=== PATIENT | female | born 1945 ===

== ENCOUNTER 2025-11-07 07:42 | Inpatient (IN) | payer MEDICARE, SELFPAY ==
[2025-11-05] VITALS (11 sets, daily range): BP systolic 91–144; BP diastolic 72–89
--- NOTE | 2025-11-05 20:49 | ED.GENMED ---
History of Present Illness
General
Chief Complaint: Weakness
Time Seen by Provider: 11/05/25 20:49
Nursing documentation reviewed up to this point in time: agreed with
History of Present Illness
History of Present Illness:
80-year-old female brought to the ER by EMS for evaluation of generalized weakness worsening over the past 5 to 6 hours. Patient also has had a cough over the past few days along with poor appetite. is present bedside to provide additional
history and states that she has been ill for the last couple of days with intermittent episodes of significant weakness, not unilateral. Patient does have a prior history of stroke which has left her with some dizziness, she reports that the
dizziness is severe today. No new syncope or trauma. She denies chest pain. No reported fever. Patient was nauseated at time of EMS arrival, she did receive Zofran and route to the hospital.
Review of Systems
Review of Systems
Allergies reviewed?: Yes
Phy Exam
Physical Exam
Physical Exam:
Patient is awake, alert, appears in no acute distress, head is NCAT, PERRL, EOMI mucous membranes moist, conjunctiva pink, heart regular rate and rhythm without murmurs or ectopy, lungs are clear to auscultation without wheezes rales or rhonchi, no
JVD, left breast status post mastectomy with significant skin retraction abdomen is soft and nontender on palpation, extremities without edema, GCS is 15, no pronator drift, moving extremity symmetrically without focal deficit, mild delayed movement
of the right side of her face but she does not exhibit facial asymmetry, patient wearing compressive stocking on left upper extremity and left lower extremity
Course
Orders/Labs/Results
Orders:
Orders
11/05/25 20:53
Electrocardiogram (*1) Stat
Reason for Study: Other
Other Reason for Exam: neuro symptoms
CT Head W/o Iv Contrast Urgent
Comment:
Reason For Exam: generalized weakness, dizziness
Bedside Glucose- Treatment ONCE
EKG- Treatment ONCE
IV Insert/Care/Rem.- Treatment PRN
0.9% Sodium Chloride 1000 ml [Nss] 1,000 ml IV BOLUS
Pulse Ox/cont/shift [RESP] Stat
Quantity: 1
11/05/25 20:54
Urinalysis Reflex To Culture Urgent
CR Chest - 2 Views Urgent
Comment:
Reason For Exam: weakness
11/05/25 20:59
COVID-19 Antigen Urgent
Source: Nasal Swab
Complete Blood Count/With Diff Urgent
Troponin I Urgent
Influenza A+B Rapid Molecular Urgent
MANJU Source: Nasal Swab
Specimen Description:
11/05/25 21:00
Comprehensive Metabolic Panel Urgent
PTT Urgent
Prothrombin Time Urgent
11/05/25 22:24
Oseltamivir Phosphate [Tamiflu] 75 mg PO NOW STA
Abnormal Lab Results
11/05/25 11/05/25 11/05/25
20:59 21:00 21:02
RDW 16.6 H %
(11.5-14.5)
Abs Immat Gran (auto) 0.1 H 10^3/uL
(0-0.05)
Absolute Neuts (auto) 6.8 H 10^3/uL
(1.4-6.5)
Absolute Lymphs (auto) 0.6 L 10^3/uL
(1.2-3.4)
Immature Gran % 1.0 H %
(0-0.5)
Neutrophils % 85.1 H %
(42.2-75.2)
Lymphocytes % 7.4 L %
(20.5-51.1)
Sodium 130 L mmol/L
(135-145)
Carbon Dioxide 17 L mmol/L
(22-30)
BUN 20 H mg/dl
(7-17)
Creatinine 1.1 H mg/dL
(0.6-1.0)
Glucose 121 H mg/dl
(70-99)
AST 38 H U/L
(14-36)
POC Glucose 105 H mg/dl
(70-99)
11/05/25 20:59
11/05/25 21:00
Vital Signs
Initial and Last Documented VS:
Initial Vital Signs
Temp Pulse Resp BP Pulse Ox
97.9 F 78 18 91/72 93
11/05/25 21:08 11/05/25 21:08 11/05/25 21:08 11/05/25 21:08 11/05/25 21:08
Last Documented Vital Signs
Temp Pulse Resp BP Pulse Ox
97.9 F 76 23 100/78 92
11/05/25 21:08 11/05/25 21:19 11/05/25 21:19 11/05/25 21:15 11/05/25 21:19
MDM/Problems Addressed
Differential Diagnosis Includes:
Differential diagnosis to consider but not limited to COVID, influenza, electrolyte dyscrasia, acute CVA, acute kidney injury along with other etiologies that are considered
Chronic conditions affecting care:
Advanced age, prior stroke, dizziness, previous breast
*Radiology
Radiology exam reviewed: radiology read reviewed (CT head without evidence of acute process)
*Pulse Oximetry
SaO2: 93
Oxygen Mode of Delivery: Room air
Patient hypoxic: no
*EKG
Interpreted by ED Provider?: Yes (I independently viewed and interpreted twelve-lead EKG showing normal sinus rhythm, rate 78, leftward axis, T wave inversions in the lateral leads, no ST elevation, this is an abnormal tracing without prior for
comparison)
*Biology Tutor Interpretation
Rate: normal (I independently viewed and interpreted rhythm strip showing normal sinus rhythm, no ectopy)
*Critical Care Note
Total Time (30-74mins, 75-104mins- exclusive of procedures): Not Applicable
Update Note
Update Note:
Patient is influenza positive. Given weakness with gait disturbance at home, will will plan for admission. Patient and agree with plan at current. Tamiflu ordered. Will discussed with the hospitalist
ED Attending Note
-
Portions of this chart may have been created with voice recognition software.� Occasional wrong word or��sound alike� substitutions may have occurred due to the inherent limitations of voice recognition software.
Discharge Plan
Departure
Patient Disposition: Admit
Date of Disposition: 11/05/25
Time of Disposition: 22:31
Presentation/result/management discussed w/ accepting MD/DO: Hospitalist
Discharge Problem:
Influenza, Weakness
Referrals:
Angelika Benitez CRNP [Family Provider, Family Practice]
Interventions
Interventions:
*General Assessment Last Done: 11/05/25 20:57
*Neglect/Abuse Screening Last Done: 11/05/25 21:08
*ED COVID-19 Vaccine History Last Done: 11/05/25 20:46
*ED Influenza Vaccine History Last Done: 11/05/25 20:46
[facility] Risk Assessment Tool Last Done: 11/05/25 21:25
*Risk Screen - Suicide (C-SSRS) Last Done: 11/05/25 21:08
ED- Cardiac Assessment Last Done: 11/05/25 22:04
ED- Neurological Assessment Last Done: 11/05/25 22:04
ED- Pulmonary Assessment Last Done: 11/05/25 22:04
Discharge Date and Time
Print Language: AMHARIC
[2025-11-05 21:03] LABS: Glucose - Point of Care 105 mg/dl (70-99)
[2025-11-05] MEDS: NSS 1000 IV (21:04)
[2025-11-05 21:12] LABS: Hematocrit 42.9 % (37.0-47.0); Hemoglobin 14.6 g/dL (12.0-16.0); Mean Corp Hgb Conc. 34.0 g/dL (33.0-37.0); Mean Corpuscular Volume 87.0 fL (81.0-99.0); Nucleated Red Blood Cells % 0 %; Platelet Count 223 10^3/uL (130-400); Red Cell Dist. Width 16.6 % (11.5-14.5)
[2025-11-05 21:22] LABS: APTT 25.8 Sec (23.4-35.0); INR 1.07; PT 13.7 Sec (11.4-14.6)
[2025-11-05 21:25] LABS: COVID-19 Antigen Negative (Negative)
[2025-11-05 21:31] LABS: ALT (SGPT) 24 U/L (0-35); AST (SGOT) 38 U/L (14-36); Albumin 3.6 g/dl (3.5-5.0); Alkaline Phosphatase 63 U/L (38-126); Blood Urea Nitrogen 20 mg/dl (7-17); Calcium 8.5 mg/dl (8.4-10.2); Carbon Dioxide 17 mmol/L (22-30); Chloride 104 mmol/L (98-107); Glucose 121 mg/dl (70-99); Potassium 4.3 mmol/L (3.5-5.1); Sodium 130 mmol/L (135-145); Total Protein 6.4 g/dl (6.3-8.2); eGFR 50.17
[2025-11-05 21:40] LABS: Troponin I 0.025 ng/ml
[2025-11-05] MEDS: TAMIFLU 75 MG PO (22:35)
--- NOTE | 2025-11-05 23:53 | HPS.HSE ---
Family Physician
-
Family Physician: Angelika Benitez
Chief Complaint
-
Cough, Fatigue
History of Present Illness
Patient is an 80y F with PMH significant for renal transplant, hypertension and prior CVA who presents to ED complaining of cough and fatigue. History obtained from patient and at the bedside. Patient and her developed cough on
Monday. Patient has had poor PO intake for the past 2 days. Very fatigued, sleeping a great deal. Today she was unable to get OOB and called 911.
Patient presented to the ED where she tested positive for influenza A.
Medical History
Past Medical History
Past Medical History: Reports Other
Additional Past Medical History:
CKD s/p Renal Transplant
Hypertension
ASCVD
Prior CVA
Chronic L TKA PJI
History of CDiff Infection
Breast Cancer
Past Surgical History: Reports Other
Additional Past Surgical History:
Left Lumpectomy
Renal Transplant
Left TKA
Left TKA Wash-Out
Bilateral JANEL
Social History
Tobacco: Former Smoker (Quit smoking 20 years ago.)
Alcohol: None
Drug: None
Family History
Family History: Not pertinent
Allergies / Home Medications
Allergies reflects when Allergies were last updated in [employer].
Home Medications with original date entered in [employer]
Allergy/Medication List:
Allergies
Allergy/AdvReac Type Severity Reaction Status Date / Time
No Known Allergies Allergy Verified 11/05/25 20:53
Home Medications
aspirin 81 mg chewable tablet 81 mg PO BID 11/05/25
cephalexin 500 mg tablet 1,000 mg PO Q8H 11/05/25
escitalopram oxalate 5 mg tablet 5 mg PO HS 11/05/25
magnesium oxide 400 mg PO DAILY 11/05/25
metoprolol succinate 25 mg tablet,extended release 24 hr 12.5 mg PO BID 11/05/25
mirtazapine 15 mg tablet 15 mg PO HS 11/05/25
prednisone 5 mg tablet 5 mg PO DAILY 11/05/25
rosuvastatin 5 mg tablet 5 mg PO HS 11/05/25
tacrolimus 0.5 mg capsule, immediate-release 0.5 mg PO HS 11/05/25
tacrolimus 1 mg capsule, immediate-release 1 mg PO DAILY 11/05/25
vancomycin 125 mg capsule 125 mg PO Q48H 11/05/25
Review of Systems
-
History Source: Patient
A 12 point ROS was completed and negative except as noted: Yes
Constitutional: Reports Fatigue; Denies Fever or Chills
EENT: Denies Sore Throat
Respiratory: Reports Cough; Denies Trouble Breathing
Cardiac: Denies Chest Pain or Palpitations
Abdomen/GI: Reports Anorexia; Denies Abdominal Pain, Nausea, Vomiting or Diarrhea
: Denies Dysuria or Frequency
Musculoskeletal: Denies Joint Pain or Edema
Neurological: Denies Dizzy or Headache
Psych: Denies Depression or Anxiety
Physical Exam
Vital Signs
Vital Signs
Temp Pulse Resp BP Pulse Ox
97.9 F 70 19 106/77 92
11/05/25 21:08 11/05/25 23:00 11/05/25 23:00 11/05/25 23:00 11/05/25 22:00
Physical Exam
General: Other (80y F in no acute distress. Pos cough during exam.)
HEENT: Moist mucous membranes and PERRLA
Respiratory: Other (Coarse breath sound scattered throughout.)
Cardiac: S1/S2 and Regular Rhythm; No Murmur
GI: Soft, Non Tender, Non Distended and Normal Bowel Sounds
Musculoskeletal: No Clubbing, No Cyanosis and Other (Edema LUE and LLE secondary to lymphedema (lumpectomy and chronic PJI))
Neuro: AO x 3
Laboratory Results
-
12/17/25 20:59
11/05/25 21:00
Laboratory Results
PT 13.7 Sec (11.4-14.6) 11/05/25 21:00
INR 1.07 11/05/25 21:00
APTT 25.8 Sec (23.4-35.0) 11/05/25 21:00
Total Bilirubin 0.4 mg/dl (0.2-1.3) 11/05/25 21:00
AST 38 U/L (14-36) H 11/05/25 21:00
ALT 24 U/L (0-35) 11/05/25 21:00
Alkaline Phosphatase 63 U/L (38-126) 11/05/25 21:00
Troponin I 0.025 ng/ml 11/05/25 20:59
Impression/Plan
-
A/P: Patient is an 80y F with PMH significant for renal transplant, hypertension and chronic PJI who presents to ED complaining of cough and fatigue.
Influenza A
Acute Respiratory Insufficiency secondary to the above
- Observe overnight for further evaluation and treatment.
- Patient did have seasonal influenza vaccine.
- Mild hypoxemia (92%).
- Tamiflu - renally dosed.
- Supportive care, O2, nebs, etc.
- Follow proper precautions.
- Monitor for clinical improvement.
CKD
Renal Transplant Status
Non-Gapped Metabolic Acidosis
- Stable. SCr is normal.
- Non-gapped acidosis - ? acute / chronic - latter seems likely.
- NaHCO3 orally for now.
- IVFs support for poor PO intake due to acute illness.
- Follow for changs in labs / lytes.
- Continue usual anti-rejection med regimen with no changes.
- Followed by Dr. Galaviz from [place].
- Consider local Nephrology evaluation if any worsening renal function, etc.
Chronic Left Knee PJI
History of CDiff Infection
- Stable. Continue usual chronic therapy including cephalexin and PO vancomycin.
ASCVD / Prior CVA
- Stable. Continue metoprolol, ASA, statin, etc.
History of Breast Cancer s/p Lumpectomy
- Lymphedema sleeve / precautions LUE.
DVT Prophylaxis: Subcut Heparin
Code Status: Full
[2025-11-06] VITALS (17 sets, daily range): BP systolic 112–157; BP diastolic 76–106; BMI 25.4; BMI 24.0
[2025-11-06] MEDS: NSS 1000 IV ×2 (01:28→13:52)
[2025-11-06] MEDS: KEFLEX 1000 MG PO ×3 (04:47→21:26)
[2025-11-06 06:53] LABS: Hematocrit 42.2 % (37.0-47.0); Hemoglobin 14.1 g/dL (12.0-16.0); Mean Corp Hgb Conc. 33.4 g/dL (33.0-37.0); Mean Corpuscular Volume 87.9 fL (81.0-99.0); Platelet Count 216 10^3/uL (130-400); Red Cell Dist. Width 16.7 % (11.5-14.5)
[2025-11-06 07:07] LABS: Blood Urea Nitrogen 17 mg/dl (7-17); Calcium 8.2 mg/dl (8.4-10.2); Carbon Dioxide 19 mmol/L (22-30); Chloride 106 mmol/L (98-107); Estimated Creatinine Clearance 34 ml/min; Glucose 81 mg/dl (70-99); Potassium 4.5 mmol/L (3.5-5.1); Sodium 132 mmol/L (135-145); eGFR 56.25
[2025-11-06] MEDS: TAMIFLU 30 MG PO ×2 (09:12→19:59)
[2025-11-06] MEDS: TOPROL XL 12.5 MG PO ×2 (09:12→19:59)
[2025-11-06] MEDS: LOW STRENGTH ASPIRIN 81 MG PO ×2 (09:13→19:59)
[2025-11-06] MEDS: SODIUM BICARBONATE 650 MG PO ×3 (09:14→21:18)
[2025-11-06] MEDS: HEPARIN 5000 UNITS SC (09:14)
[2025-11-06] MEDS: DELTASONE 5 MG PO (09:16)
[2025-11-06] MEDS: PROGRAF 1 MG PO (09:16)
[2025-11-06 09:40] LABS: Urine Character Clear (Clear)
[2025-11-06] MEDS: FIRVANQ 125 MG PO (10:30)
--- NOTE | 2025-11-06 11:58 | W.PN.HOSP.TC ---
Addendum entered and electronically signed by Alina Nicolas MD 11/06/25 12:40:
update from RN that pt's sat dropped to 87%, hence 2L NC was placed
Cont O2 support for now and wean as tolerated.
Addendum entered and electronically signed by Alina Nicolas MD 11/06/25 12:22:
per RN, pt has been on RA, sat at 91%
Original Note:
Today's Communication/Plan
-
see A/P
Assessment / Plan
Assessment / Plan
HPI: 80 yo F with PMH significant for renal transplant, hypertension, prior CVA; who presented to ED complaining of cough and fatigue. History obtained from patient and at the bedside. Patient and her developed cough on Monday.
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 She couldn't get OOB and called 911.
Patient presented to the ED where she tested positive for influenza A.
A/P:
# Generalized weakness due to Influenza A infection
# Acute Hypoxic Respiratory Insufficiency secondary to the above
Patient did have seasonal influenza vaccine.
Tamiflu was started (renally dosed), cont.
Pt appear to have removed O2 support, checking pulse on on room air, pt not on home O2
Follow proper precautions.
Monitor for clinical improvement.
# h/o Renal Transplant
# Non-Gapped Metabolic Acidosis, improving
Pt was started with PO Bicarb 650 mg TID, cont for now
IVFs support for poor PO intake due to acute illness.
Follow for changes in labs / lytes.
Continue usual anti-rejection med regimen with no changes.
Followed by Dr. Galaviz from [place].
# Chronic Left Knee PJI
# History of CDiff Infection
Stable.
Continue usual chronic therapy including cephalexin and PO vancomycin.
# ASCVD / Prior CVA
Stable.
Continue metoprolol, ASA, statin, etc.
# History of Breast Cancer s/p Lumpectomy
Lymphedema sleeve / precautions LUE.
DVT Prophylaxis: change to Lovenox SQ
Code Status: Full
DW RN
DW at bedside
Anticipated Discharge: 24 - 48 hours
Subjective/Interval History
-
Date of Service: November 06, 2025
Objective Data
-
Labs:
Laboratory Results
11/06/25
06:44
WBC 8.0
Hgb 14.1
Hct 42.2
Plt Count 216
Sodium 132 L
Potassium 4.5
Chloride 106
Carbon Dioxide 19 L
BUN 17
Creatinine 1.0
Glucose 81
Calcium 8.2 L
Vital Signs:
Vital Signs
Temp Pulse Resp BP Pulse Ox
36.6 C 95 29 144/101 89
11/05/25 21:08 11/06/25 07:15 11/06/25 07:15 11/06/25 06:00 11/06/25 07:15
Review of Systems
-
History Source: Patient
All other systems: Reviewed and negative
Constitutional: Reports Weakness (improved )
Physical Exam
-
General: Well Developed, Well Nourished, No Apparent Distress, Comfortable and Conversant
HEENT: Normocephalic, Atraumatic, Nose Appears Normal and Ears Appear Normal
Respiratory: Clear to Auscultation and Non Labored Respirations; Negative Accessory Resp Muscle Use
Cardiac: Regular Rhythm and S1/S2
GI: Soft, Nontender, Nondistended and Normal Bowel Sounds
Skin: Warm and Dry
Neuro: Awake and Alert
Psych: Calm
Data Reviewed
-
Diagnostic Radiology: Report Reviewed by me
CT Scan: Report Reviewed by me
Labs: Labs Reviewed by me
[2025-11-06] MEDS: TYLENOL 650 MG PO (12:33)
--- NOTE | 2025-11-06 14:06 | PTCARENOTE ---
pt transferred to 4W. Pt pulled over from stretcher to bed. No c/o pain/ Safety measures in place call fontana within reach.
[2025-11-06 15:06] LABS: Troponin I 0.022 ng/ml
[2025-11-06] MEDS: LOVENOX 40 MG SC (17:44)
[2025-11-06] MEDS: LEXAPRO 5 MG PO (21:19)
[2025-11-06] MEDS: REMERON 15 MG PO (21:19)
[2025-11-06] MEDS: CRESTOR 5 MG PO (21:25)
[2025-11-06] MEDS: PROGRAF 0.5 MG PO (21:54)
[2025-11-07] VITALS (8 sets, daily range): BP systolic 108–146; BP diastolic 62–92; PULSE 75; O2SAT 95; BMI 24.2
[2025-11-07] MEDS: NSS 1000 IV (02:07)
[2025-11-07] MEDS: KEFLEX 1000 MG PO ×3 (04:59→22:25)
[2025-11-07 08:45] LABS: Hematocrit 38.4 % (37.0-47.0); Hemoglobin 13.0 g/dL (12.0-16.0); Mean Corp Hgb Conc. 33.9 g/dL (33.0-37.0); Mean Corpuscular Volume 89.3 fL (81.0-99.0); Platelet Count 193 10^3/uL (130-400); Red Cell Dist. Width 17.0 % (11.5-14.5)
[2025-11-07 09:09] LABS: ALT (SGPT) 25 U/L (0-35); AST (SGOT) 43 U/L (14-36); Albumin 2.8 g/dl (3.5-5.0); Alkaline Phosphatase 56 U/L (38-126); Blood Urea Nitrogen 21 mg/dl (7-17); Calcium 7.9 mg/dl (8.4-10.2); Carbon Dioxide 18 mmol/L (22-30); Chloride 106 mmol/L (98-107); Estimated Creatinine Clearance 34 ml/min; Glucose 66 mg/dl (70-99); Magnesium 1.7 mg/dl (1.6-2.3); Potassium 4.3 mmol/L (3.5-5.1); Sodium 132 mmol/L (135-145); Total Protein 5.3 g/dl (6.3-8.2); eGFR 56.25
[2025-11-07] MEDS: TYLENOL 650 MG PO (09:39)
[2025-11-07] MEDS: TAMIFLU 30 MG PO ×2 (09:40→20:35)
[2025-11-07] MEDS: SODIUM BICARBONATE 650 MG PO ×3 (09:40→22:25)
[2025-11-07] MEDS: TOPROL XL 12.5 MG PO ×2 (09:41→20:36)
[2025-11-07] MEDS: PROGRAF 1 MG PO (09:42)
[2025-11-07] MEDS: DELTASONE 5 MG PO (09:42)
[2025-11-07] MEDS: LOW STRENGTH ASPIRIN 81 MG PO ×2 (09:42→20:35)
--- NOTE | 2025-11-07 10:15 | W.PN.HOSP.TC ---
Today's Communication/Plan
-
see A/P
Assessment / Plan
Assessment / Plan
HPI: 80 yo F with PMH significant for renal transplant, hypertension, prior CVA; who presented to ED complaining of cough and fatigue. History obtained from patient and at the bedside. Patient and her developed cough on Monday.
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 She couldn't get OOB and called 911.
Patient presented to the ED where she tested positive for influenza A.
A/P:
# Generalized weakness due to Influenza A infection
# Acute Hypoxic Respiratory Insufficiency secondary to the above
Pt was placed on 2L NC, weaned back to RA, cont to check pulse Ox, of note pt not on home O2
Patient did have seasonal influenza vaccine.
Cont Tamiflu (renally dosed) x 5 days
Follow proper precautions. Monitor for clinical improvement.
PT recc SNF
# h/o Renal Transplant
# Non-Gapped Metabolic Acidosis, improving
Pt was started with PO Bicarb 650 mg TID, cont for now, monitor lytes
s/p IVF, observe off additional IVF support
Continue usual anti-rejection med regimen with no changes.
Followed by Dr. Galaviz from [place].
# Chronic Left Knee PJI
# History of CDiff Infection
Stable.
Continue usual chronic therapy including cephalexin and PO vancomycin.
# ASCVD / Prior CVA
Stable.
Continue metoprolol, ASA, statin, etc.
# History of Breast Cancer s/p L Lumpectomy
Lymphedema sleeve / precautions LUE.
DVT Prophylaxis: change to Lovenox SQ
Code Status: Full
DW CM
DW RN
DW at bedside
Anticipated Discharge: 24 - 48 hours
Subjective/Interval History
-
Date of Service: November 07, 2025
Objective Data
-
Labs:
Laboratory Results
11/07/25
07:35
WBC 5.5
Hgb 13.0
Hct 38.4
Plt Count 193
Sodium 132 L
Potassium 4.3
Chloride 106
Carbon Dioxide 18 L
BUN 21 H
Creatinine 1.0
Glucose 66 L
Calcium 7.9 L
Total Bilirubin 0.2
AST 43 H
ALT 25
Alkaline Phosphatase 56
Vital Signs:
Vital Signs
Temp Pulse Resp BP Pulse Ox
36.6 C 75 14 138/84 95
11/07/25 07:05 11/07/25 09:41 11/07/25 07:05 11/07/25 09:41 11/07/25 07:05
I&O
11/06/25 11/07/25 11/08/25
06:59 06:59 06:59
Intake Total 1440 / 1440
Balance 1440 / 1440
Review of Systems
-
History Source: Patient
All other systems: Reviewed and negative
Constitutional: Reports Weakness (improved )
Respiratory: Reports Cough (occasional)
Physical Exam
-
General: Well Developed, Well Nourished, No Apparent Distress, Comfortable and Conversant
HEENT: Normocephalic, Atraumatic, Nose Appears Normal and Ears Appear Normal
Respiratory: Clear to Auscultation and Non Labored Respirations; Negative Accessory Resp Muscle Use
Cardiac: Regular Rhythm and S1/S2
GI: Soft, Nontender, Nondistended and Normal Bowel Sounds
Skin: Warm and Dry
Neuro: Awake and Alert
Psych: Calm
Data Reviewed
-
Diagnostic Radiology: Report Reviewed by me
CT Scan: Report Reviewed by me
Labs: Labs Reviewed by me
--- NOTE | 2025-11-07 15:41 | CM ---
Met w/ patient and spouse bedside, initial assessment completed. Patient is an 80y F with PMH significant for renal transplant, hypertension and prior CVA who presents to ED complaining of cough and fatigue.
Patient resides w/ spouse in a single story rancher style home, 4 steps to enter. Patient uses RW to ambulate, has w/c, grab bar and shower chair. Recent w/ [facility] a few months ago, no longer current. [facility] hx.
Address, point of contact and insurance verified
PCP: Angelika Benitez
[facility]
LOC changed to IP today
Therapy rec skilled rehab at discharge. Discussed w/ patient and spouse and is agreeable. Prefer [facility], referral sent in [facility]. SNF list provided to explore other options in case [facility] doesn't have availability
Plan: SNF
[2025-11-07] MEDS: LOVENOX 40 MG SC (17:47)
--- NOTE | 2025-11-07 17:55 | PTCARENOTE ---
Assumed care of pt from previous nurse. Pt denies pain. Pt call fontana is within reach, pt rings kaleb. will cont to monitor.
[2025-11-07] MEDS: CRESTOR 5 MG PO (22:24)
[2025-11-07] MEDS: REMERON 15 MG PO (22:25)
[2025-11-07] MEDS: LEXAPRO 5 MG PO (22:25)
[2025-11-07] MEDS: PROGRAF 0.5 MG PO (22:25)
[2025-11-08] VITALS (7 sets, daily range): BP systolic 119–151; BP diastolic 79–94; BMI 24.5
[2025-11-08] MEDS: KEFLEX 1000 MG PO ×3 (05:29→21:32)
[2025-11-08 07:32] LABS: ALT (SGPT) 33 U/L (0-35); AST (SGOT) 51 U/L (14-36); Albumin 2.8 g/dl (3.5-5.0); Alkaline Phosphatase 67 U/L (38-126); Blood Urea Nitrogen 21 mg/dl (7-17); Calcium 8.5 mg/dl (8.4-10.2); Carbon Dioxide 21 mmol/L (22-30); Chloride 109 mmol/L (98-107); Estimated Creatinine Clearance 34 ml/min; Glucose 74 mg/dl (70-99); Potassium 4.3 mmol/L (3.5-5.1); Sodium 134 mmol/L (135-145); Total Protein 5.5 g/dl (6.3-8.2); eGFR 56.25
--- NOTE | 2025-11-08 08:17 | W.PN.HOSP.TC ---
Today's Communication/Plan
-
Doing better
Continue Tamiflu
Assessment / Plan
Assessment / Plan
Physical Exam
General: Well Developed, Well Nourished, No Apparent Distress, Comfortable and Conversant
HEENT: Normocephalic, Atraumatic
Respiratory: Clear to Auscultation and Non Labored Respirations
Cardiac: Regular Rhythm and S1/S2
GI: Soft, Nontender, Nondistended and Normal Bowel Sounds
Skin: Warm and Dry
Neuro: Awake and Alert
Psych: Calm
Assessment/Plan
HPI: 80 yo F with PMH significant for renal transplant, hypertension, prior CVA; who presented to ED complaining of cough and fatigue. History obtained from patient and at the bedside. Patient and her developed cough on Monday.
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 She couldn't get OOB and called 911.
Patient presented to the ED where she tested positive for influenza A.
A/P:
# Generalized weakness due to Influenza A infection
# Acute Hypoxic Respiratory Insufficiency secondary to the above
Pt was placed on 2L NC, weaned back to RA, cont to check pulse Ox, of note pt not on home O2
Patient did have seasonal influenza vaccine.
Cont Tamiflu (renally dosed) x 5 days
Follow proper precautions. Monitor for clinical improvement.
PT recc SNF
# h/o Renal Transplant
# Non-Gapped Metabolic Acidosis, improving
Pt was started with PO Bicarb 650 mg TID, cont for now, monitor lytes
s/p IVF, observe off additional IVF support
Continue usual anti-rejection med regimen with no changes.
Followed by Dr. Galaviz from [place].
# Chronic Left Knee PJI
# History of CDiff Infection
Stable.
Continue usual chronic therapy including cephalexin and PO vancomycin.
# ASCVD / Prior CVA
Stable.
Continue metoprolol, ASA, statin, etc.
# History of Breast Cancer s/p L Lumpectomy
Lymphedema sleeve / precautions LUE.
DVT Prophylaxis: Lovenox SQ
Code Status: Full
Anticipated Discharge: 24 - 48 hours
Subjective/Interval History
-
Date of Service: November 08, 2025
Patient was seen and examined. She reported that her shortness of breath is better. She denied any other new symptoms or complaints.
Objective Data
-
Labs:
Laboratory Results
11/08/25
05:52
Sodium 134 L
Potassium 4.3
Chloride 109 H
Carbon Dioxide 21 L
BUN 21 H
Creatinine 1.0
Glucose 74
Calcium 8.5
Total Bilirubin 0.4
AST 51 H
ALT 33
Alkaline Phosphatase 67
Vital Signs:
Vital Signs
Temp Pulse Resp BP Pulse Ox
97.4 F 62 18 151/82 97
11/08/25 03:24 11/08/25 03:24 11/08/25 03:24 11/08/25 03:24 11/08/25 03:24
I&O
11/07/25 11/08/25 11/09/25
06:59 06:59 06:59
Intake Total 1440 / 1440 1200 / 1200
Output Total 700 / 700
Balance 1440 / 1440 500 / 500
[2025-11-08] MEDS: TAMIFLU 30 MG PO ×2 (08:21→20:04)
[2025-11-08] MEDS: DELTASONE 5 MG PO (08:21)
[2025-11-08] MEDS: LOW STRENGTH ASPIRIN 81 MG PO ×2 (08:21→20:04)
[2025-11-08] MEDS: TOPROL XL 12.5 MG PO ×2 (08:21→20:04)
[2025-11-08] MEDS: SODIUM BICARBONATE 650 MG PO ×3 (08:21→21:33)
[2025-11-08] MEDS: FIRVANQ 125 MG PO (08:21)
[2025-11-08] MEDS: PROGRAF 1 MG PO (08:21)
[2025-11-08] MEDS: LOVENOX 40 MG SC (17:37)
[2025-11-08] MEDS: LEXAPRO 5 MG PO (21:32)
[2025-11-08] MEDS: CRESTOR 5 MG PO (21:32)
[2025-11-08] MEDS: REMERON 15 MG PO (21:33)
[2025-11-08] MEDS: PROGRAF 0.5 MG PO (21:33)
--- NOTE | 2025-11-08 21:55 | PTCARENOTE ---
Addendum entered by Suma Buck RN 11/09/25 01:28:
Patient reported breathing tx effective upon follow up. Audible wheezing resolved.
Original Note:
Patient w/ audible wheezing, which wasn't present when in room previously giving 8pm meds. Pulse ox is 95% on 2L. She reports having some SOB. Agreeable to try PRN breathing tx. Contacted Resp. therapist via TT, who will come to administer.
[2025-11-08] MEDS: VENTOLIN NEBULES 2.5 MG INH (22:45)
[2025-11-09 03:05] VITALS: BP 160/94
[2025-11-09] MEDS: KEFLEX 1000 MG PO ×3 (05:27→22:04)
[2025-11-09] MEDS: VENTOLIN NEBULES 2.5 MG INH ×2 (05:49→20:41)
[2025-11-09 06:00] VITALS: BMI 24.4
[2025-11-09] MEDS: TOPROL XL 12.5 MG PO ×2 (07:50→20:28)
[2025-11-09] MEDS: TAMIFLU 30 MG PO ×2 (07:50→20:28)
[2025-11-09] MEDS: PROGRAF 1 MG PO (07:50)
[2025-11-09] MEDS: SODIUM BICARBONATE 650 MG PO ×3 (07:52→22:05)
[2025-11-09] MEDS: DELTASONE 5 MG PO (07:52)
[2025-11-09] MEDS: LOW STRENGTH ASPIRIN 81 MG PO ×2 (07:52→20:27)
[2025-11-09 07:53] VITALS: BP 143/84
--- NOTE | 2025-11-09 08:05 | W.PN.HOSP.TC ---
Today's Communication/Plan
-
SNF placement pending
Assessment / Plan
Assessment / Plan
Physical Exam
General: Well Developed, Well Nourished, No Apparent Distress
HEENT: Normocephalic, Atraumatic
Respiratory: Clear to Auscultation Bilaterally
Cardiac: Regular Rhythm and S1/S2
GI: Soft, Nontender, Nondistended and Normal Bowel Sounds
Skin: Warm and Dry
Neuro: Awake and Alert
Psych: Calm
Assessment/Plan
HPI: 80 yo F with PMH significant for renal transplant, hypertension, prior CVA; who presented to ED complaining of cough and fatigue. History obtained from patient and at the bedside. Patient and her developed cough on Monday.
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 She couldn't get OOB and called 911.
Patient presented to the ED where she tested positive for influenza A.
# Generalized weakness due to Influenza A infection
# Acute Hypoxic Respiratory Insufficiency secondary to the above
Pt was placed on 2L NC, weaned back to RA, cont to check pulse Ox, of note pt not on home O2
Patient did have seasonal influenza vaccine.
Cont Tamiflu (renally dosed) x 5 days
Follow proper precautions. Monitor for clinical improvement.
PT recommended SNF
# h/o Renal Transplant
# Non-Gapped Metabolic Acidosis, improving
Pt was started with PO Bicarb 650 mg TID, cont for now, monitor lytes
s/p IVF, observe off additional IVF support
Continue usual anti-rejection med regimen with no changes.
Followed by Dr. Galaviz from [place].
#Asymptomatic ESBL E. coli bacteriuria
-No need for antibiotics unless recent kidney transplant (check with patient that transplant is recent)
# Chronic Left Knee PJI
# History of CDiff Infection
Stable.
Continue usual chronic therapy including cephalexin and PO vancomycin.
# ASCVD / Prior CVA
Stable.
Continue metoprolol, ASA, statin, etc.
# History of Breast Cancer s/p L Lumpectomy
Lymphedema sleeve / precautions LUE.
DVT Prophylaxis: Lovenox SQ
Code Status: Full
Anticipated Discharge: 24 - 48 hours
Subjective/Interval History
-
Date of Service: November 09, 2025
Patient was seen and examined. She denied any new symptoms or complaints.
Objective Data
-
Labs:
Laboratory Results
11/09/25
06:58
Sodium Pending
Potassium Pending
Chloride Pending
Carbon Dioxide Pending
BUN Pending
Creatinine Pending
Glucose Pending
Calcium Pending
Total Bilirubin Pending
AST Pending
ALT Pending
Alkaline Phosphatase Pending
Vital Signs:
Vital Signs
Temp Pulse Resp BP Pulse Ox
98.1 F 73 18 143/84 96
11/09/25 07:53 11/09/25 07:53 11/09/25 07:53 11/09/25 07:53 11/09/25 07:58
I&O
11/08/25 11/09/25 11/10/25
06:59 06:59 06:59
Intake Total 1200 / 1200 1160 / 1160
Output Total 700 / 700
Balance 500 / 500 1160 / 1160
[2025-11-09 08:14] LABS: ALT (SGPT) 35 U/L (0-35); AST (SGOT) 52 U/L (14-36); Albumin 3.1 g/dl (3.5-5.0); Alkaline Phosphatase 83 U/L (38-126); Blood Urea Nitrogen 21 mg/dl (7-17); Calcium 8.5 mg/dl (8.4-10.2); Carbon Dioxide 23 mmol/L (22-30); Chloride 106 mmol/L (98-107); Estimated Creatinine Clearance 34 ml/min; Glucose 81 mg/dl (70-99); Potassium 4.2 mmol/L (3.5-5.1); Sodium 135 mmol/L (135-145); Total Protein 5.7 g/dl (6.3-8.2); eGFR 56.25
[2025-11-09 08:45] LABS: Hematocrit 39.3 % (37.0-47.0); Hemoglobin 13.1 g/dL (12.0-16.0); Mean Corp Hgb Conc. 33.3 g/dL (33.0-37.0); Mean Corpuscular Volume 88.9 fL (81.0-99.0); Platelet Count 200 10^3/uL (130-400); Red Cell Dist. Width 16.8 % (11.5-14.5)
[2025-11-09 11:57] VITALS: BP 123/78
[2025-11-09 15:42] VITALS: BP 139/90
[2025-11-09] MEDS: LOVENOX 40 MG SC (17:49)
[2025-11-09 20:27] VITALS: BP 152/101
[2025-11-09] MEDS: PROGRAF 0.5 MG PO (22:04)
[2025-11-09] MEDS: CRESTOR 5 MG PO (22:05)
[2025-11-09] MEDS: REMERON 15 MG PO (22:05)
[2025-11-09] MEDS: LEXAPRO 5 MG PO (22:06)
[2025-11-09 23:08] VITALS: BP 149/91
[2025-11-10] MEDS: KEFLEX 1000 MG PO (05:57)
[2025-11-10 06:00] VITALS: BMI 23.9
[2025-11-10 07:00] VITALS: BP 167/104
[2025-11-10] MEDS: TOPROL XL 12.5 MG PO (08:03)
[2025-11-10] MEDS: TAMIFLU 30 MG PO (08:05)
[2025-11-10] MEDS: LOW STRENGTH ASPIRIN 81 MG PO (08:05)
[2025-11-10] MEDS: DELTASONE 5 MG PO (08:05)
[2025-11-10] MEDS: PROGRAF 1 MG PO (08:06)
[2025-11-10] MEDS: SODIUM BICARBONATE 650 MG PO (08:06)
[2025-11-10] MEDS: FIRVANQ 125 MG PO (08:07)
[2025-11-10 09:16] LABS: Hematocrit 40.4 % (37.0-47.0); Hemoglobin 13.5 g/dL (12.0-16.0); Mean Corp Hgb Conc. 33.4 g/dL (33.0-37.0); Mean Corpuscular Volume 86.9 fL (81.0-99.0); Platelet Count 218 10^3/uL (130-400); Red Cell Dist. Width 16.5 % (11.5-14.5)
[2025-11-10 10:36] LABS: ALT (SGPT) 34 U/L (0-35); AST (SGOT) 45 U/L (14-36); Albumin 3.6 g/dl (3.5-5.0); Alkaline Phosphatase 75 U/L (38-126); Blood Urea Nitrogen 17 mg/dl (7-17); Calcium 9.0 mg/dl (8.4-10.2); Carbon Dioxide 25 mmol/L (22-30); Chloride 103 mmol/L (98-107); Estimated Creatinine Clearance 38 ml/min; Glucose 79 mg/dl (70-99); Magnesium 1.3 mg/dl (1.6-2.3); Potassium 4.1 mmol/L (3.5-5.1); Sodium 135 mmol/L (135-145); Total Protein 6.5 g/dl (6.3-8.2); eGFR > 60.00
[2025-11-10 10:48] LABS: Nucleated Red Blood Cells % 0 %
[2025-11-10 11:00] VITALS: BP 165/91
[2025-11-10] MEDS: ZOFRAN 4 MG IV (11:44)
--- NOTE | 2025-11-10 11:44 | PHANOTE ---
Vancomycin Update Note
Per Dr. Richards (ID), patient to begin vancomycin regimen after R TMA debridement today (8PM). Antibiotic plan changed to load with vancomycin 2000MG IV once at that time. Random level placed for 11/11/25 @0600 to assess for appropriateness of
beginning maintenance dosing.
Trini Kramer, PharmD, BCCCP
--- NOTE | 2025-11-10 12:22 | W.PN.HOSP.TC ---
Today's Communication/Plan
-
for SNF today
Assessment / Plan
Assessment / Plan
HPI: 80 yo F with PMH significant for renal transplant, hypertension, prior CVA; who presented to ED complaining of cough and fatigue. History obtained from patient and at the bedside. Patient and her developed cough on Monday.
Patient also had poor PO intake for the past 2 days [employer] and felt very fatigued and sleepy. She couldn't get OOB and called 911.
Patient presented to the ED where she tested positive for influenza A.
A/P:
# Generalized weakness due to Influenza A infection
# Acute Hypoxic Respiratory Insufficiency secondary to the above, resolved
Pt was placed on 2L NC, weaned back to RA, of note pt not on home O2
Patient did have seasonal influenza vaccine.
s/p Tamiflu (renally dosed) x 5 days
Follow proper precautions. Monitor for clinical improvement.
PT recommended SNF
# h/o Renal Transplant
# Non-Gapped Metabolic Acidosis, resolved
Pt was started with PO Bicarb 650 mg TID, with resolution of acidosis, stop further bicarb
Continue usual anti-rejection med regimen with no changes.
Followed by Dr. Galaviz from [facility].
# Asymptomatic ESBL E. coli bacteriuria
No need for antibiotics unless recent kidney transplant
# Chronic Left Knee PJI
# History of CDiff Infection
Stable.
Continue usual chronic therapy including cephalexin and PO vancomycin.
# ASCVD / Prior CVA
Stable.
Continue metoprolol, ASA, statin, etc.
# History of Breast Cancer s/p L Lumpectomy
Lymphedema sleeve / precautions LUE.
DVT Prophylaxis: Lovenox SQ
Code Status: Full
Dispo: SNF
DW CM
Anticipated Discharge: Today
Subjective/Interval History
-
Date of Service: November 10, 2025
Objective Data
-
Labs:
Laboratory Results
11/10/25
08:20
WBC 6.6
Hgb 13.5
Hct 40.4
Plt Count 218
Sodium 135
Potassium 4.1
Chloride 103
Carbon Dioxide 25
BUN 17
Creatinine 0.9
Glucose 79
Calcium 9.0
Total Bilirubin 0.8
AST 45 H
ALT 34
Alkaline Phosphatase 75
Vital Signs:
Vital Signs
Temp Pulse Resp BP Pulse Ox
36.4 C 72 18 165/91 97
11/10/25 11:00 11/10/25 11:00 11/10/25 11:00 11/10/25 11:00 11/10/25 11:00
I&O
11/09/25 11/10/25 11/11/25
06:59 06:59 06:59
Intake Total 1160 / 1160 960 / 960
Balance 1160 / 1160 960 / 960
Review of Systems
-
History Source: Patient
All other systems: Reviewed and negative
Physical Exam
-
General: Well Developed, Well Nourished, No Apparent Distress, Comfortable and Conversant
HEENT: Normocephalic, Atraumatic, Nose Appears Normal and Ears Appear Normal; Negative Oxygen
Respiratory: Clear to Auscultation and Non Labored Respirations; Negative Accessory Resp Muscle Use
Cardiac: Regular Rhythm and S1/S2
GI: Soft, Nontender, Nondistended and Normal Bowel Sounds
Skin: Warm and Dry
Neuro: Awake and Alert
Psych: Calm
Data Reviewed
-
Diagnostic Radiology: Report Reviewed by me
CT Scan: Report Reviewed by me
Labs: Labs Reviewed by me
--- NOTE | 2025-11-10 13:11 | CM ---
Patient now declined SNF today, patient and spouse would like for discharge home today
Spouse bedside, agreeable to referral to [facility] as patient has used in the past. Referral sent in [facility]
Updated Michaela/Lavinia as there was a bed available today
IMM verbally reviewed, copy provided, copy on chart
Miguel

Plan: Home w/ Miguel
--- NOTE | 2025-11-10 14:40 | W.DCSUMMARY ---
Discharge Summary
Discharge Data
Date of Admission: 11/07/25
Date of Discharge: 11/10/25
Total time spent discharging patient (in min): 40
-
Pending Results: No
Hospital Course
Principal Diagnosis:
Generalized weakness due to Influenza A infection
Resolved Acute Hypoxic Respiratory Insufficiency
Non-Gapped Metabolic Acidosis, resolved
Asymptomatic ESBL E. coli bacteriuria- no need for treatment
Chronic Diagnoses:�
h/o Renal Transplant
Chronic Left Knee PJI on chronic Keflex
History of C Diff Infection on chronic PO vancomycin.
ASCVD / Prior CVA, stable.
History of Breast Cancer s/p L Lumpectomy, with LUE Lymphedema sleeve
Hypertension
Consultations:�
None
Procedures:�
None
Clinical course:�
This is a 80 year old F with PMH as stated above, who presented with cough, fatigue and poor PO intake.
She was tested positive for influenza A in the emergency room.
Problem 1:
Generalized weakness due to Influenza A infection.
This was associated with Acute Hypoxic Respiratory Insufficiency, which resolved (weaned from 2 L nasal cannula back to room air).
She was treated with Tamiflu and received total of 5 days course while in the hospital.
She was discharged to SNF per PT OT recommendation.
Of note, she was also given oral bicarb for nongap metabolic acidosis on admission.
Bicarb was discontinued with resolution of her metabolic acidosis.
As for the rest of her medical problems, they were stable during her hospital stay.
Discharge Plan
-
Patient Disposition: Detention/SNF
Discharge Diagnosis/Procedures: Generalized weakness due to influenza A infection
Condition: Fair
Diet: As tolerated
Activity: As tolerated
Driving Restrictions: As prior to admission
Referrals:
Angelika Benitez CRNP [Family Provider, Family Practice] - in less than 1 week
Prescriptions:
Continued
prednisone 5 mg Tablet
5 mg PO DAILY
vancomycin 125 mg Capsule
125 mg PO Q48H
Rx Instructions:
for 30 days starting 10/12/25
aspirin 81 mg Tablet,Chewable
81 mg PO BID
cephalexin 500 mg Tablet
1,000 mg PO Q8H
mirtazapine 15 mg Tablet
15 mg PO HS
metoprolol succinate 25 mg Tablet Extended Release 24 Hr
12.5 mg PO BID
tacrolimus 1 mg capsule
1 mg PO DAILY
tacrolimus 0.5 mg capsule
0.5 mg PO HS
rosuvastatin 5 mg Tablet
5 mg PO HS
escitalopram oxalate 5 mg Tablet
5 mg PO HS
magnesium oxide 400 mg magnesium Tablet
400 mg PO DAILY
acetaminophen [Tylenol] 325 mg Tablet
650 mg PO BID
Discharge Orders:
Discharge Patient (As Directed); Ordered 11/10/25
Ordered By: Alina Nicolas
Discharge Date and Time
Print Language: AZERI
== END 2025-11-10 17:14 | disposition home health service (06) | DRG 194 ==
LOC: 4 WEST ACU 07:42
PROVIDERS: Hospitalist; ADMITTING PHYSICIAN Hospitalist; ATTENDING PHYSICIAN Internal Medicine; EMERGENCY PHYSICIAN Emergency Medicine; FAMILY PHYSICIAN Nurse Practitioner Family
DX: J10.1 Influenza due to other identified influenza virus with other respiratory manifestations (principal); E87.20 Acidosis, unspecified; Z94.0 Kidney transplant status; R09.02 Hypoxemia; R82.71 Bacteriuria; I25.10 Atherosclerotic heart disease of native coronary artery without angina pectoris; I10 Essential (primary) hypertension; I89.0 Lymphedema, not elsewhere classified; Z87.891 Personal history of nicotine dependence; T84.54XD Infection and inflammatory reaction due to internal left knee prosthesis, subsequent encounter; Y79.2 Prosthetic and other implants, materials and accessory orthopedic devices associated with adverse incidents; Z11.52 Encounter for screening for COVID-19; Z86.19 Personal history of other infectious and parasitic diseases; Z86.73 Personal history of transient ischemic attack (TIA), and cerebral infarction without residual deficits; Z85.3 Personal history of malignant neoplasm of breast; Z79.82 Long term (current) use of aspirin
CPT/HCPCS: 70450; 71046; 80048; 80053; 81003; 81015; 82962; 83735; 84484; 85025; 85027; 85610; 85730; 87077; 87086; 87186; 87502; 87811; 93005; 94640; 94761; 97163; 97167